=== PATIENT | male | born 1975 | race Caucasian/White ===

== ENCOUNTER → 2017-06-03 | Outpatient (CLI) | payer OTHER ==
[2017-06-03 07:47] LABS: BASOPHILS # (AUTO) 0.1 X10^3/uL (0.0-0.1); EOSINOPHILS # (AUTO) 0.2 x10^3/uL (0.0-0.2); HEMATOCRIT 42.6 % (42.0-54.0); HEMOGLOBIN 14.8 g/dL (13.5-18.0); LYMPHOCYTES # (AUTO) 1.9 X10^3/uL (1.3-2.9); LYMPHOCYTES % (AUTO) 23.3 % (21.0-51.0); MEAN CORPUSCULAR HEMOGLOBIN 29.8 pg (27.0-34.0); MEAN CORPUSCULAR HGB CONC 34.7 g/dL (33.0-35.0); MEAN CORPUSCULAR VOLUME 85.9 fL (80.0-100.0); MEAN PLATELET VOLUME 9.1 fL (7.4-11.0); MONOCYTES # (AUTO) 0.9 x10^3/uL (0.3-0.8); MONOCYTES % (AUTO) 11.4 % (0.0-13.0); NEUTROPHILS % (AUTO) 61.3 % (42.0-75.0); PLATELET COUNT 229 X10^3/uL (150.0-450.0); RED BLOOD COUNT 4.96 X10^6/uL (4.7-6.0); RED CELL DISTRIBUTION WIDTH 13.3 % (11.6-16.5); WHITE BLOOD COUNT 8.1 X10^3/uL (3.6-10.0)
[2017-06-03 07:56] LABS: HEMOGLOBIN A1C 6.5 % (4.5-6.2)
[2017-06-03 07:59] LABS: ALANINE AMINOTRANSFERASE 46 Units/L (12-78); ALBUMIN 3.8 g/dL (3.4-5.0); ALKALINE PHOSPHATASE 68 Units/L (46-116); ASPARTATE AMINO TRANSFERASE 24 Units/L (15-37); BLOOD UREA NITROGEN 12 mg/dL (7-18); CALCIUM 9.1 mg/dL (8.5-10.1); CARBON DIOXIDE 30.1 mmol/L (21-32); CHLORIDE 99 mmol/L (98-107); CHOL/HDL RATIO 3.6 (0.0-5.0); CHOLESTEROL 167 mg/dL (0-200); COR NA(FOR HYPERGLY) 136 mmol/L (136-145); CREATININE 0.94 mg/dL (0.70-1.30); HDL CHOLESTEROL 47 mg/dL (40-60); SODIUM 135 mmol/L (136-145); TOTAL PROTEIN 7.8 g/dL (6.4-8.2); TRIGLYCERIDES 108 mg/dL (0-150); eGFR BLACK RACES > 60 (>60); eGFR NON BLACK RACES > 60 (>60)
[2017-06-03 08:12] LABS: TOTAL PSA 0.29 ng/mL (0.13-4.0)
[2017-06-03 08:29] LABS: ERYTHROCYTE SEDIMENTATION RATE 21 MM/HOUR (0-15)
[2017-06-03 08:38] LABS: CREATININE,URINE 156.97 mg/dL (40-278); MICROALBUMIN,URINE 20.8 mg/L
== END ==
LOC: LAB 07:16
PROVIDERS: ATTEND Nurse Practitioner Family
DX: R35.8 Other polyuria (principal); E11.9 Type 2 diabetes mellitus without complications
CPT/HCPCS: 36415; 80053; 80061; 82043; 83036; 84153; 85025; 85652; 86140

== ENCOUNTER → 2017-07-13 | Outpatient (CLI) | payer OTHER | LOC: LAB 07:30 | PROVIDERS: ATTEND Podiatrist | DX: M85.872 Other specified disorders of bone density and structure, left ankle and foot (principal) | CPT/HCPCS: 36415; 82306 ==

== ENCOUNTER 2018-03-14 08:04 | Inpatient (IN) ==
[2018-03-14 08:09] VITALS: BMI 43.7
[2018-03-14 08:37] LABS: BILIRUBIN,URINE 1+ (NEGATIVE); BLOOD/HEMOGLOBIN,URINE 1+ (NEGATIVE); GLUCOSE, URINE 3+ (NEGATIVE); KETONES,URINE 1+ (NEGATIVE); LEUKOCYTE ESTERASE ,URINE 1+ (NEGATIVE); NITRITES,URINE POSITIVE (NEGATIVE); PROTEIN,URINE 3+ (NEGATIVE); UROBILINOGEN,URINE 1+ (NORMAL)
[2018-03-14 08:44] LABS: APPEARANCE,URINE HAZY (CLEAR); COLOR,URINE DARK YELLOW (YELLOW)
[2018-03-14 08:45] LABS: RBC,URINE 0-2 /HPF (NONE SEEN)
[2018-03-14 08:46] LABS: BACTERIA,URINE NEGATIVE /HPF (NEGATIVE); SQUAMOUS EPITHELIAL CELL,UR NEGATIVE /HPF (NEGATIVE)
[2018-03-14 08:55] LABS: BASOPHILS # (AUTO) 0.1 X10^3/uL (0.0-0.1); BASOPHILS % (AUTO) 0.3 % (0.2-1.0); EOSINOPHILS % (AUTO) 0.2 % (0.9-2.9); HEMATOCRIT 42.1 % (42.0-54.0); HEMOGLOBIN 14.7 g/dL (13.5-18.0); LYMPHOCYTES # (AUTO) 1.6 X10^3/uL (1.3-2.9); LYMPHOCYTES % (AUTO) 10.3 % (21.0-51.0); MEAN CORPUSCULAR HEMOGLOBIN 30.8 pg (27.0-34.0); MEAN CORPUSCULAR HGB CONC 34.9 g/dL (33.0-35.0); MEAN CORPUSCULAR VOLUME 88.1 fL (80.0-100.0); MEAN PLATELET VOLUME 8.7 fL (7.4-11.0); MONOCYTES # (AUTO) 1.6 x10^3/uL (0.3-0.8); MONOCYTES % (AUTO) 10.2 % (0.0-13.0); NEUTROPHILS # (AUTO) 12.5 x10^3/uL (2.2-4.8); PLATELET COUNT 205 X10^3/uL (150.0-450.0); RED BLOOD COUNT 4.78 X10^6/uL (4.7-6.0); RED CELL DISTRIBUTION WIDTH 13.5 % (11.6-16.5); WHITE BLOOD COUNT 15.8 X10^3/uL (3.6-10.0)
[2018-03-14] MEDS: NS 1000 ML 1,000 ML IV SCH ×3 (08:57→21:02)
[2018-03-14 09:12] LABS: ALANINE AMINOTRANSFERASE 38 Units/L (12-78); ALBUMIN 3.4 g/dL (3.4-5.0); ALKALINE PHOSPHATASE 82 Units/L (46-116); AMYLASE 24 Units/L (25-115); ASPARTATE AMINO TRANSFERASE 16 Units/L (15-37); BLOOD UREA NITROGEN 12 mg/dL (7-18); CALCIUM 9.1 mg/dL (8.5-10.1); CARBON DIOXIDE 29.5 mmol/L (21-32); CHLORIDE 99 mmol/L (98-107); COR NA(FOR HYPERGLY) 137 mmol/L (136-145); CREATININE 0.93 mg/dL (0.70-1.30); LIPASE 97 Units/L (73-393); SODIUM 135 mmol/L (136-145); TOTAL PROTEIN 7.6 g/dL (6.4-8.2); eGFR NON BLACK RACES > 60 (>60)
[2018-03-14] MEDS ORDERED: TORADOL 30 MG VIAL IVP ONE (09:49)
[2018-03-14] MEDS ORDERED: TORADOL 30 MG VIAL ONE (09:51)
[2018-03-14] MEDS ORDERED: NS 100 ML IV 100 ML IV ONE (10:37)
--- NOTE | 2018-03-14 11:25 | DR.ABDMALE ---
HPI Time seen Time Seen by Provider: 03/14/18 08:35 PCP Primary Care Physician: CHARO Complaint Chief Complaint:: LOWER ABD. PAIN THAT RADIATES TO THE BACK THAT STARTED YESTERDAY. FEVER, NAUSEA. Mode of arrival Mode of Arrival: Ambulatory Timing Onset of Chief Complaint: 03/13/18 PMH PMH Past Medical History: Yes Past Medical History: Diabetes and Hypertension Past Surgical History: Yes Surgical History: Ortho Surgery Past Surgical History Comment: HERNIA Family History History of Family Medical Conditions: Yes Family Medical History: Diabetes Mellitus, Cancer, [place], Heart Failure and Hypertension Social History Does patient currently use any type of tobacco product: No Have you used tobacco products in the last 12 months: No Type of Tobacco Use: None Does any household member use tobacco: No Alcohol Use: Occasionally Do you use any recreational Drugs:: No Lives With: Family Lives Where: Home infectious screening In the last 2 months have you had wt loss of >10#?: NO Have you had fever, night sweats or hemotysis?: No Have you traveled outside the country in the last 6 months?: No Isolation: Standard PE Vital Signs Vital Signs: Temp Pulse Pulse Resp BP BP BP 03/15/18 04:00 98.5 F 80 20 114/57 03/15/18 00:00 99.1 F 88 20 126/77 03/14/18 20:00 98.8 F 88 20 141/77 03/14/18 16:00 99.2 F 83 18 107/65 03/14/18 12:00 97.6 F 86 20 174/91 03/14/18 11:43 85 17 123/67 03/14/18 08:05 97.8 F 101 H 20 171/82 Pulse Ox 03/15/18 04:00 96 03/15/18 00:00 95 03/14/18 20:00 97 03/14/18 16:00 96 03/14/18 12:00 99 03/14/18 11:43 97 03/14/18 08:05 97 General Limitations: No Limitations General Appearance: Alert and In No Apparent Distress Head Head Exam: Normal Inspection, Atraumatic and Normocephalic Eyes Eye exam: Normal Appearance, PERRL and EOMI ENT ENT Exam: Normal Exam and Normal Oropharynx Neck Neck Exam: Normal Inspection and Full ROM Chest Chest Inspection: Normal Inspection and Symmetric Chest Wall Rise Respiratory Respiratory Exam: Bilateral: Clear to Auscultation Cardiovascular Cardiovascular Exam: Regular Rate and Normal Rhythm Abdominal Exam Abdominal Exam: Normal Inspection and Tenderness (suprapubic area) Abdominal Tenderness: RUQ, RLQ, LUQ and Suprapubic Rectal Rectal Exam: Deferred Back Back Exam: Normal Inspection and Full ROM Extremeties Extremities Exam: Normal Inspection and Full ROM Exam: Male: Deferred Neurologic Neurological Exam: Alert, Oriented X3 and CN II-XII Intact Psychiatric Psychiatric Exam: Normal Affect and Normal Mood Skin Skin Exam: Warm, Dry, Intact, Normal Color and Rash COURSE Consultation Called: 11:45 Consultation Comments: Dr Anthony; agreed to admit for further evaluation and treatment. ROR Labs Reviewed Laboratory Results Reviewed?: Yes Result Diagrams: 03/14/18 08:45 03/14/18 08:45 Laboratory: WBC 15.8 X10^3/uL (3.6-10.0) H 03/14/18 08:45 RBC 4.78 X10^6/uL (4.7-6.0) 03/14/18 08:45 Hgb 14.7 g/dL (13.5-18.0) 03/14/18 08:45 Hct 42.1 % (42.0-54.0) 03/14/18 08:45 MCV 88.1 fL (80.0-100.0) 03/14/18 08:45 MCH 30.8 pg (27.0-34.0) 03/14/18 08:45 MCHC 34.9 g/dL (33.0-35.0) 03/14/18 08:45 RDW 13.5 % (11.6-16.5) 03/14/18 08:45 Plt Count 205 X10^3/uL (150.0-450.0) 03/14/18 08:45 MPV 8.7 fL (7.4-11.0) 03/14/18 08:45 Neut % (Auto) 79.0 % (42.0-75.0) H 03/14/18 08:45 Lymph % (Auto) 10.3 % (21.0-51.0) L 03/14/18 08:45 Sebastian % (Auto) 10.2 % (0.0-13.0) 03/14/18 08:45 Eos % (Auto) 0.2 % (0.9-2.9) L 03/14/18 08:45 Baso % (Auto) 0.3 % (0.2-1.0) 03/14/18 08:45 Neut # (Auto) 12.5 x10^3/uL (2.2-4.8) H 03/14/18 08:45 Lymph # (Auto) 1.6 X10^3/uL (1.3-2.9) 03/14/18 08:45 Sebastian # (Auto) 1.6 x10^3/uL (0.3-0.8) H 03/14/18 08:45 Eos # (Auto) 0.0 x10^3/uL (0.0-0.2) 03/14/18 08:45 Baso # (Auto) 0.1 X10^3/uL (0.0-0.1) 03/14/18 08:45 Absolute Nucleated RBC 0.0 /100WBC 03/14/18 08:45 Sodium 135 mmol/L (136-145) L 03/14/18 08:45 Corrected Sodium 137 mmol/L (136-145) 03/14/18 08:45 Potassium 3.7 mmol/L (3.5-5.1) 03/14/18 08:45 Chloride 99 mmol/L (98-107) 03/14/18 08:45 Carbon Dioxide 29.5 mmol/L (21-32) 03/14/18 08:45 BUN 12 mg/dL (7-18) 03/14/18 08:45 Creatinine 0.93 mg/dL (0.70-1.30) 03/14/18 08:45 Est GFR (MDRD) Af Amer > 60 (>60) 03/14/18 08:45 Est GFR (MDRD) Non-Af > 60 (>60) 03/14/18 08:45 Glucose 185 mg/dL (65-99) H 03/14/18 08:45 POC Glucose (mg/dL) 123 mg/dL (65-99) H 03/14/18 20:35 Calcium 9.1 mg/dL (8.5-10.1) 03/14/18 08:45 Corrected Calcium TNP 03/14/18 08:45 Total Bilirubin 0.90 mg/dL (0.2-1.0) 03/14/18 08:45 AST 16 Units/L (15-37) 03/14/18 08:45 ALT 38 Units/L (12-78) 03/14/18 08:45 Alkaline Phosphatase 82 Units/L (46-116) 03/14/18 08:45 C-Reactive Protein 100.00 mg/L (0-3.0) H 03/14/18 08:45 Total Protein 7.6 g/dL (6.4-8.2) 03/14/18 08:45 Albumin 3.4 g/dL (3.4-5.0) 03/14/18 08:45 Globulin 4.2 g/dL (2.5-4.5) 03/14/18 08:45 Albumin/Globulin Ratio 0.8 Ratio (1.1-2.1) L 03/14/18 08:45 Amylase 24 Units/L (25-115) L 03/14/18 08:45 Lipase 97 Units/L (73-393) 03/14/18 08:45 Specimen Type Clean catch urine 03/14/18 08:24 Urine Color Dark yellow (YELLOW) 03/14/18 08:24 Urine Appearance Hazy (CLEAR) 03/14/18 08:24 Urine pH 5.0 (5.0 - 8.0) 03/14/18 08:24 Ur Specific [place] 1.020 (1.000-1.030) 03/14/18 08:24 Urine Protein 3+ (NEGATIVE) 03/14/18 08:24 Urine Glucose (UA) 3+ (NEGATIVE) 03/14/18 08:24 Urine Ketones 1+ (NEGATIVE) 03/14/18 08:24 Urine Occult Blood 1+ (NEGATIVE) 03/14/18 08:24 Urine Nitrite Positive (NEGATIVE) 03/14/18 08:24 Urine Bilirubin 1+ (NEGATIVE) 03/14/18 08:24 Urine Urobilinogen 1+ (NORMAL) 03/14/18 08:24 Ur Leukocyte Esterase 1+ (NEGATIVE) 03/14/18 08:24 Urine RBC 0-2 /HPF (NONE SEEN) 03/14/18 08:24 Urine WBC 0-2 /HPF (NONE SEEN) 03/14/18 08:24 Ur Squamous Epith Cells Negative /HPF (NEGATIVE) 03/14/18 08:24 Urine Bacteria Negative /HPF (NEGATIVE) 03/14/18 08:24 Ur Culture Indicated? No/not indicated 03/14/18 08:24 H. pylori IgG Antibody Negative (NEGATIVE) 03/14/18 08:45 Other Results Comments: Active appearing diverticulitis involving the mid sigmoid colon region. There are few areas of walled-off micro perforation present. No fluid collection or abscess is seen. There is no evidence of bowel obstruction. Diagnosis Discharge Problem: Diverticulitis
--- NOTE | 2018-03-14 11:28 | CT ---
HISTORY: Abdominal pain Study: CT abdomen and pelvis with IV contrast Comparison: No priors Technique: Multiple axial images of the abdomen and pelvis were obtained from the lung bases to the pubic symphy sis during the administration of IV contrast. Coronal and sagittal images are also reviewed. Dose re duction techniques utilized automatic exposure control. Findings: The visualized portions of the lung bases are unremarkable. The liver, spleen, pancreas, kidneys, an d adrenal glands are unremarkable in their CT appearance. The gallbladder is unremarkable in its CT a ppearance. No significant mesenteric lymphadenopathy can be observed. No free fluid is seen within the abdomen. No bowel dilatation is present. There is mesenteric stranding adjacent to the sigmoid colon. There is some bowel wall thickening present in this region. A few areas of walled-off micro pe rforation are present involving this region. Findings have the appearance of active diverticulitis wi th micro perforation. No fluid collection or bowel obstruction is seen. There is no evidence of absce ss.. The urinary bladder is grossly unremarkable. The bony structures are grossly intact. IMPRESSION: Active appearing diverticulitis involving the mid sigmoid colon region. There are few areas of walled -off micro perforation present. No fluid collection or abscess is seen. There is no evidence of bowel obstruction. Findings discussed with Dr. Gonzalez at 11:23 a.m. on 03/14/2018. Reported By:
[2018-03-14] MEDS ORDERED: NS 1000 ML 1,000 ML IV SCH (12:00)
[2018-03-14] MEDS ORDERED: ZOFRAN INJ 4 MG VIAL IVP PRN (12:06)
[2018-03-14] MEDS: MORPHINE SULFATE INJ 4 MG IVP PRN ×2 (13:00→17:37)
[2018-03-14] MEDS: FLAGYL IV PREMIX 500 MG BAG 500 MG/100 ML BAG IV SCH ×2 (14:17→21:02)
[2018-03-14] MEDS: CIPRO IV 400 MG PREMIX* 400 MG/200 ML IV.SOLN. IV SCH (21:02)
[2018-03-15] MEDS: NS 1000 ML 1,000 ML IV SCH ×4 (01:06→21:30)
[2018-03-15] MEDS: MORPHINE SULFATE INJ 4 MG IVP PRN ×2 (03:57→23:20)
[2018-03-15] MEDS: FLAGYL IV PREMIX 500 MG BAG 500 MG/100 ML BAG IV SCH ×4 (03:57→21:00)
[2018-03-15 05:12] LABS: BASOPHILS # (AUTO) 0.1 X10^3/uL (0.0-0.1); BASOPHILS % (AUTO) 0.5 % (0.2-1.0); EOSINOPHILS # (AUTO) 0.2 x10^3/uL (0.0-0.2); EOSINOPHILS % (AUTO) 1.3 % (0.9-2.9); HEMATOCRIT 38.7 % (42.0-54.0); HEMOGLOBIN 13.3 g/dL (13.5-18.0); LYMPHOCYTES # (AUTO) 2.2 X10^3/uL (1.3-2.9); LYMPHOCYTES % (AUTO) 17.2 % (21.0-51.0); MEAN CORPUSCULAR HEMOGLOBIN 30.3 pg (27.0-34.0); MEAN CORPUSCULAR HGB CONC 34.4 g/dL (33.0-35.0); MEAN CORPUSCULAR VOLUME 88.1 fL (80.0-100.0); MEAN PLATELET VOLUME 9.4 fL (7.4-11.0); MONOCYTES % (AUTO) 7.9 % (0.0-13.0); NEUTROPHILS # (AUTO) 9.2 x10^3/uL (2.2-4.8); NEUTROPHILS % (AUTO) 73.1 % (42.0-75.0); PLATELET COUNT 176 X10^3/uL (150.0-450.0); RED BLOOD COUNT 4.39 X10^6/uL (4.7-6.0); RED CELL DISTRIBUTION WIDTH 13.6 % (11.6-16.5); WHITE BLOOD COUNT 12.6 X10^3/uL (3.6-10.0)
[2018-03-15 05:23] LABS: BLOOD UREA NITROGEN 8 mg/dL (7-18); CALCIUM 8.3 mg/dL (8.5-10.1); CARBON DIOXIDE 32.4 mmol/L (21-32); CHLORIDE 101 mmol/L (98-107); COR NA(FOR HYPERGLY) 139 mmol/L (136-145); CREATININE 0.92 mg/dL (0.70-1.30); SODIUM 138 mmol/L (136-145); eGFR NON BLACK RACES > 60 (>60)
[2018-03-15] MEDS ORDERED: POTASSIUM CHL 60 MEQ/NS 0.45% 500 ML IV PRN (07:34)
[2018-03-15] MEDS ORDERED: POTASSIUM CHLORIDE LIQ 20 MEQ UDC PO PRN (07:34)
[2018-03-15] MEDS ORDERED: POTASSIUM CHL 40 MEQ/NS 0.45% 500 ML IV PRN (07:34)
[2018-03-15] MEDS ORDERED: K-RIDER 10 MEQ/NS 100 ML 10 MEQ/100 ML BAG IV PRN (07:34)
[2018-03-15] MEDS ORDERED: GLUCOPHAGE ONE (08:05)
[2018-03-15] MEDS: CIPRO IV 400 MG PREMIX* 400 MG/200 ML IV.SOLN. IV SCH ×2 (08:21→22:00)
[2018-03-15] MEDS ORDERED: GLUCOPHAGE PO SCH (09:00)
[2018-03-15] MEDS: ZESTRIL TAB 10 MG PO SCH (09:33)
[2018-03-15] MEDS: PriLOSEC PO SCH (09:34)
[2018-03-15] MEDS: GLUCOPHAGE XR PO SCH ×2 (09:35→21:20)
[2018-03-15] MEDS ORDERED: GLUCOPHAGE XR PO NR (10:00)
[2018-03-15] MEDS: K-LYTE EFFERVESCENT PO PRN (11:21)
[2018-03-15] MEDS: MAGNESIUM SULFATE 1 GRAM/100 mL PREMIX 1 GM/100 ML BAG IV PRN ×2 (11:22→13:24)
[2018-03-16] MEDS: NS 1000 ML 1,000 ML IV SCH ×6 (03:04→22:27)
[2018-03-16] MEDS: FLAGYL IV PREMIX 500 MG BAG 500 MG/100 ML BAG IV SCH ×4 (03:32→20:47)
[2018-03-16 05:14] LABS: BASOPHILS # (AUTO) 0.1 X10^3/uL (0.0-0.1); BASOPHILS % (AUTO) 0.4 % (0.2-1.0); EOSINOPHILS # (AUTO) 0.3 x10^3/uL (0.0-0.2); EOSINOPHILS % (AUTO) 2.1 % (0.9-2.9); HEMATOCRIT 38.1 % (42.0-54.0); HEMOGLOBIN 13.5 g/dL (13.5-18.0); LYMPHOCYTES # (AUTO) 2.5 X10^3/uL (1.3-2.9); LYMPHOCYTES % (AUTO) 18.7 % (21.0-51.0); MEAN CORPUSCULAR HEMOGLOBIN 30.8 pg (27.0-34.0); MEAN CORPUSCULAR HGB CONC 35.4 g/dL (33.0-35.0); MEAN CORPUSCULAR VOLUME 87.1 fL (80.0-100.0); MEAN PLATELET VOLUME 8.9 fL (7.4-11.0); MONOCYTES # (AUTO) 1.3 x10^3/uL (0.3-0.8); MONOCYTES % (AUTO) 9.9 % (0.0-13.0); NEUTROPHILS # (AUTO) 9.2 x10^3/uL (2.2-4.8); NEUTROPHILS % (AUTO) 68.9 % (42.0-75.0); PLATELET COUNT 227 X10^3/uL (150.0-450.0); RED BLOOD COUNT 4.38 X10^6/uL (4.7-6.0); RED CELL DISTRIBUTION WIDTH 13.5 % (11.6-16.5); WHITE BLOOD COUNT 13.3 X10^3/uL (3.6-10.0)
[2018-03-16 05:23] LABS: ALANINE AMINOTRANSFERASE 27 Units/L (12-78); ALBUMIN 2.9 g/dL (3.4-5.0); ALKALINE PHOSPHATASE 69 Units/L (46-116); ASPARTATE AMINO TRANSFERASE 16 Units/L (15-37); BLOOD UREA NITROGEN 6 mg/dL (7-18); CALCIUM 8.4 mg/dL (8.5-10.1); CARBON DIOXIDE 31.3 mmol/L (21-32); CHLORIDE 101 mmol/L (98-107); COR CA(FOR HYPOALB) 9.3 mg/dL (8.5-10.1); COR NA(FOR HYPERGLY) 138 mmol/L (136-145); CREATININE 0.93 mg/dL (0.70-1.30); SODIUM 138 mmol/L (136-145); TOTAL PROTEIN 6.9 g/dL (6.4-8.2); eGFR NON BLACK RACES > 60 (>60)
[2018-03-16] MEDS: MORPHINE SULFATE INJ 4 MG IVP PRN (07:08)
[2018-03-16] MEDS: GLUCOPHAGE XR PO SCH ×2 (08:59→20:48)
[2018-03-16] MEDS: PriLOSEC PO SCH (09:00)
[2018-03-16] MEDS: ZESTRIL TAB 10 MG PO SCH (09:00)
[2018-03-16] MEDS: CIPRO IV 400 MG PREMIX* 400 MG/200 ML IV.SOLN. IV SCH ×2 (09:00→20:47)
[2018-03-17] MEDS: NS 1000 ML 1,000 ML IV SCH ×5 (01:24→20:22)
[2018-03-17] MEDS: FLAGYL IV PREMIX 500 MG BAG 500 MG/100 ML BAG IV SCH ×4 (03:14→20:21)
[2018-03-17 05:03] LABS: BASOPHILS # (AUTO) 0.1 X10^3/uL (0.0-0.1); BASOPHILS % (AUTO) 0.6 % (0.2-1.0); EOSINOPHILS # (AUTO) 0.3 x10^3/uL (0.0-0.2); EOSINOPHILS % (AUTO) 2.9 % (0.9-2.9); HEMATOCRIT 38.5 % (42.0-54.0); HEMOGLOBIN 13.6 g/dL (13.5-18.0); LYMPHOCYTES # (AUTO) 2.2 X10^3/uL (1.3-2.9); LYMPHOCYTES % (AUTO) 21.6 % (21.0-51.0); MEAN CORPUSCULAR HEMOGLOBIN 30.9 pg (27.0-34.0); MEAN CORPUSCULAR HGB CONC 35.4 g/dL (33.0-35.0); MEAN CORPUSCULAR VOLUME 87.2 fL (80.0-100.0); MEAN PLATELET VOLUME 9.1 fL (7.4-11.0); MONOCYTES # (AUTO) 0.8 x10^3/uL (0.3-0.8); MONOCYTES % (AUTO) 7.8 % (0.0-13.0); NEUTROPHILS # (AUTO) 6.8 x10^3/uL (2.2-4.8); NEUTROPHILS % (AUTO) 67.1 % (42.0-75.0); PLATELET COUNT 231 X10^3/uL (150.0-450.0); RED BLOOD COUNT 4.41 X10^6/uL (4.7-6.0); RED CELL DISTRIBUTION WIDTH 13.3 % (11.6-16.5); WHITE BLOOD COUNT 10.1 X10^3/uL (3.6-10.0)
[2018-03-17 05:09] LABS: ALANINE AMINOTRANSFERASE 30 Units/L (12-78); ALBUMIN 2.9 g/dL (3.4-5.0); ALKALINE PHOSPHATASE 65 Units/L (46-116); ASPARTATE AMINO TRANSFERASE 24 Units/L (15-37); BLOOD UREA NITROGEN 6 mg/dL (7-18); CALCIUM 8.5 mg/dL (8.5-10.1); CARBON DIOXIDE 29.3 mmol/L (21-32); CHLORIDE 101 mmol/L (98-107); COR CA(FOR HYPOALB) 9.4 mg/dL (8.5-10.1); COR NA(FOR HYPERGLY) 137 mmol/L (136-145); CREATININE 0.92 mg/dL (0.70-1.30); SODIUM 137 mmol/L (136-145); TOTAL PROTEIN 7.1 g/dL (6.4-8.2); eGFR NON BLACK RACES > 60 (>60)
[2018-03-17] MEDS: K-LYTE EFFERVESCENT PO PRN (06:21)
[2018-03-17] MEDS: ZESTRIL TAB 10 MG PO SCH (08:49)
[2018-03-17] MEDS: PriLOSEC PO SCH (08:49)
[2018-03-17] MEDS: CIPRO IV 400 MG PREMIX* 400 MG/200 ML IV.SOLN. IV SCH ×2 (08:49→20:21)
[2018-03-17] MEDS: GLUCOPHAGE XR PO SCH ×2 (08:50→20:21)
[2018-03-18] MEDS ORDERED: TYLENOL 325 MG TAB PO PRN (01:43)
[2018-03-18] MEDS: NS 1000 ML 1,000 ML IV SCH ×2 (02:06→10:35)
[2018-03-18] MEDS: FLAGYL IV PREMIX 500 MG BAG 500 MG/100 ML BAG IV SCH ×2 (02:23→09:10)
[2018-03-18 05:49] LABS: BASOPHILS # (AUTO) 0.1 X10^3/uL (0.0-0.1); BASOPHILS % (AUTO) 0.9 % (0.2-1.0); EOSINOPHILS # (AUTO) 0.2 x10^3/uL (0.0-0.2); EOSINOPHILS % (AUTO) 2.1 % (0.9-2.9); HEMATOCRIT 40.6 % (42.0-54.0); HEMOGLOBIN 14.3 g/dL (13.5-18.0); LYMPHOCYTES # (AUTO) 2.4 X10^3/uL (1.3-2.9); MEAN CORPUSCULAR HEMOGLOBIN 30.7 pg (27.0-34.0); MEAN CORPUSCULAR HGB CONC 35.3 g/dL (33.0-35.0); MEAN CORPUSCULAR VOLUME 87.1 fL (80.0-100.0); MEAN PLATELET VOLUME 8.6 fL (7.4-11.0); MONOCYTES # (AUTO) 0.8 x10^3/uL (0.3-0.8); MONOCYTES % (AUTO) 7.5 % (0.0-13.0); NEUTROPHILS # (AUTO) 6.6 x10^3/uL (2.2-4.8); NEUTROPHILS % (AUTO) 65.5 % (42.0-75.0); PLATELET COUNT 244 X10^3/uL (150.0-450.0); RED BLOOD COUNT 4.67 X10^6/uL (4.7-6.0); RED CELL DISTRIBUTION WIDTH 13.4 % (11.6-16.5); WHITE BLOOD COUNT 10.1 X10^3/uL (3.6-10.0)
[2018-03-18 06:14] LABS: ALANINE AMINOTRANSFERASE 35 Units/L (12-78); ALBUMIN 2.9 g/dL (3.4-5.0); ALKALINE PHOSPHATASE 66 Units/L (46-116); ASPARTATE AMINO TRANSFERASE 32 Units/L (15-37); BLOOD UREA NITROGEN 6 mg/dL (7-18); CALCIUM 8.4 mg/dL (8.5-10.1); CARBON DIOXIDE 28.9 mmol/L (21-32); CHLORIDE 102 mmol/L (98-107); COR CA(FOR HYPOALB) 9.3 mg/dL (8.5-10.1); COR NA(FOR HYPERGLY) 139 mmol/L (136-145); CREATININE 0.92 mg/dL (0.70-1.30); SODIUM 138 mmol/L (136-145); TOTAL PROTEIN 7.2 g/dL (6.4-8.2); eGFR NON BLACK RACES > 60 (>60)
[2018-03-18] MEDS: PriLOSEC PO SCH (09:09)
[2018-03-18] MEDS: GLUCOPHAGE XR PO SCH (09:09)
[2018-03-18] MEDS: CIPRO IV 400 MG PREMIX* 400 MG/200 ML IV.SOLN. IV SCH (09:10)
[2018-03-18] MEDS: ZESTRIL TAB 10 MG PO SCH (09:10)
[2018-03-18 12:26] VITALS: BP 128/64
== END 2018-03-18 12:35 | disposition home or self-care (01) | DRG 392 ==
LOC: ER 08:04 → MED/SURG 11:48
PROVIDERS: ADMIT Obstetrics & Gynecology Obstetrics; ATTEND Obstetrics & Gynecology Obstetrics
DX: N39.0 Urinary tract infection, site not specified; K57.92 Diverticulitis of intestine, part unspecified, without perforation or abscess without bleeding; I10 Essential (primary) hypertension; M54.89 Other dorsalgia; R10.84 Generalized abdominal pain; E11.65 Type 2 diabetes mellitus with hyperglycemia
CPT/HCPCS: 36415; 74177; 80048; 80053; 81001; 82150; 83690; 83735; 84132; 85025; 86140; 86677; 96365; 96367; 96374; 99282; 99284; A4222; S0030; J0744; J1885; J2270; J2405; J3475; J7030; J7050; J8499